=== PATIENT | female | born 1945 | race Caucasian/White ===

== ENCOUNTER → 2017-01-31 | Outpatient (CLI) | payer OTHER, MEDICARE ==
[~2017-01-31] MED LIST: AEROECLIPSE1 EACH; ASPIRIN81 M2 PO; BETAPACE AF120 M1; BETAPACE AF80 MG PO; CALTRATE PLUS1 EACH; CENTRUM COMPLE1 EACH; COZAAR 25 MG TA25 MG PO; FIBERCON625 M1 PO; GLUMETZA500 PO; MUCINEX600 MG PO; NORCO 5-325 TA1 EACH PO; PRILOSEC 20 MG20 MG PO; SIMVASTATIN20 MG PO; SYNTHROID75 MCG PO; XARELTO10 M1; XOPENEX; XOPENEX HF1 UDINHALE
== END ==
LOC: RAD 15:41
DX: J44.9 Chronic obstructive pulmonary disease, unspecified (principal); R06.89 Other abnormalities of breathing

== ENCOUNTER → 2019-03-15 | Outpatient (CLI) | payer OTHER, MEDICARE | LOC: RAD 12:46 | DX: R06.02 Shortness of breath (principal); Z88.1 Allergy status to other antibiotic agents; Z88.8 Allergy status to other drugs, medicaments and biological substances; Z88.0 Allergy status to penicillin ==

== ENCOUNTER → 2019-11-01 | Outpatient (CLI) | payer OTHER, MEDICARE | LOC: SJCVCIMAG 13:46 | DX: I65.23 Occlusion and stenosis of bilateral carotid arteries (principal); I48.0 Paroxysmal atrial fibrillation; I10 Essential (primary) hypertension; E11.9 Type 2 diabetes mellitus without complications; J44.9 Chronic obstructive pulmonary disease, unspecified; E78.00 Pure hypercholesterolemia, unspecified; Z90.710 Acquired absence of both cervix and uterus; Z79.01 Long term (current) use of anticoagulants; Z79.84 Long term (current) use of oral hypoglycemic drugs; Z79.899 Other long term (current) drug therapy; Z87.891 Personal history of nicotine dependence ==

== ENCOUNTER → 2020-03-11 | Outpatient (CLI) | payer OTHER, MEDICARE | LOC: SJCVC 11:32 | DX: I44.0 Atrioventricular block, first degree (principal); I48.0 Paroxysmal atrial fibrillation; I65.23 Occlusion and stenosis of bilateral carotid arteries; E78.5 Hyperlipidemia, unspecified; I10 Essential (primary) hypertension; E11.9 Type 2 diabetes mellitus without complications; J44.9 Chronic obstructive pulmonary disease, unspecified; E78.00 Pure hypercholesterolemia, unspecified; Z79.899 Other long term (current) drug therapy; Z82.49 Family history of ischemic heart disease and other diseases of the circulatory system; Z79.01 Long term (current) use of anticoagulants; Z87.891 Personal history of nicotine dependence ==

== ENCOUNTER → 2020-07-30 | Outpatient (CLI) | payer OTHER, MEDICARE | LOC: RAD 10:46 | PROVIDERS: ATTEND Pediatrics | DX: R06.02 Shortness of breath (principal) ==

== ENCOUNTER → 2020-09-10 | Outpatient (CLI) | payer OTHER, MEDICARE | LOC: SJCVCIMAG 08:03 | PROVIDERS: ATTEND Internal Medicine | DX: I65.23 Occlusion and stenosis of bilateral carotid arteries (principal); I08.2 Rheumatic disorders of both aortic and tricuspid valves; I11.9 Hypertensive heart disease without heart failure; R00.0 Tachycardia, unspecified; I48.0 Paroxysmal atrial fibrillation; E78.5 Hyperlipidemia, unspecified; E11.9 Type 2 diabetes mellitus without complications; Z79.01 Long term (current) use of anticoagulants; Z79.899 Other long term (current) drug therapy; Z87.891 Personal history of nicotine dependence ==

== ENCOUNTER 2021-02-18 01:08 | Emergency (ER) | payer OTHER, MEDICARE ==
[~2021-02-18] VITALS: Ht 172.7 cm; Wt 73.0 kg
[2021-02-18 01:59] LABS: ABSOLUTE NEUTROPHILS 3.8 thou/uL (1.4-8.2); BASOPHILS 0.3 % (0.0-2.0); EOSINOPHILS 1.4 % (0.0-3.0); HEMATOCRIT 36.2 % (37.0-47.0); HEMOGLOBIN 11.8 gm/dL (12.0-15.0); LYMPHOCYTES 10.6 % (24.0-44.0); MCH 29.5 pg (26.0-34.0); MCHC 32.5 g/dL (28.0-37.0); MCV 90.5 fL (80.0-100.0); MONOCYTES 8.1 % (1.0-8.0); PLATELET COUNT 176 thou/uL (150-400); POLYS 79.6 % (36.0-66.0); RDW 15.3 % (10.5-14.5); WBC 4.8 thou/uL (4.0-11.0)
[2021-02-18 02:02] LABS: CALCIUM 9.6 mg/dL (8.5-10.1); CREATININE 0.9 mg/dL (0.6-1.0); POTASSIUM 3.9 mmol/L (3.5-5.1)
[2021-02-18 02:03] LABS: URINE BILIRUBIN NEGATIVE (Negative); URINE BLOOD TRACE (Negative); URINE CLARITY CLEAR; URINE COLOR YELLOW; URINE GLUCOSE-RANDOM* NEGATIVE (Negative); URINE KETONES NEGATIVE (Negative); URINE LEUKOCYTES-REFLEX NEGATIVE (Negative); URINE NITRITE-REFLEX NEGATIVE (Negative); URINE PROTEIN (DIPSTICK) NEGATIVE (Negative); URINE UROBILINOGEN 0.2 E.U./dl (0.2-1.0)
[2021-02-18 02:08] LABS: ALBUMIN 3.6 g/dL (3.4-5.0); TOTAL BILIRUBIN 0.9 mg/dL (0.2-1.0); TOTAL PROTEIN 7.2 g/dL (6.4-8.2)
[2021-02-18 02:37] VITALS: BP 135/55
== END 2021-02-18 02:38 | disposition home or self-care (01) ==
LOC: ER 01:08
PROVIDERS: Emergency Medicine
DX: R50.9 Fever, unspecified (principal); E11.9 Type 2 diabetes mellitus without complications; I48.91 Unspecified atrial fibrillation; I10 Essential (primary) hypertension; E03.9 Hypothyroidism, unspecified; J44.9 Chronic obstructive pulmonary disease, unspecified; Z88.1 Allergy status to other antibiotic agents; Z88.0 Allergy status to penicillin; Z79.899 Other long term (current) drug therapy; Z79.82 Long term (current) use of aspirin

== ENCOUNTER → 2021-04-08 | Outpatient (CLI) | payer OTHER, MEDICARE | LOC: SJCVC 10:32 | PROVIDERS: ATTEND Internal Medicine | DX: R94.31 Abnormal electrocardiogram [ECG] [EKG] (principal); I48.0 Paroxysmal atrial fibrillation; E78.5 Hyperlipidemia, unspecified; I65.23 Occlusion and stenosis of bilateral carotid arteries; I10 Essential (primary) hypertension; E11.9 Type 2 diabetes mellitus without complications; J44.9 Chronic obstructive pulmonary disease, unspecified; E78.00 Pure hypercholesterolemia, unspecified; Z90.710 Acquired absence of both cervix and uterus; Z88.0 Allergy status to penicillin; Z88.8 Allergy status to other drugs, medicaments and biological substances; Z79.01 Long term (current) use of anticoagulants; Z79.82 Long term (current) use of aspirin; Z79.84 Long term (current) use of oral hypoglycemic drugs; Z79.899 Other long term (current) drug therapy; Z87.891 Personal history of nicotine dependence; Z82.49 Family history of ischemic heart disease and other diseases of the circulatory system ==

== ENCOUNTER → 2021-10-08 | Outpatient (CLI) | payer OTHER, MEDICARE | LOC: SJCVC 13:06 | PROVIDERS: ATTEND Internal Medicine | DX: I44.0 Atrioventricular block, first degree (principal); I48.0 Paroxysmal atrial fibrillation; E78.5 Hyperlipidemia, unspecified; I10 Essential (primary) hypertension; I65.23 Occlusion and stenosis of bilateral carotid arteries; E11.9 Type 2 diabetes mellitus without complications; Z79.01 Long term (current) use of anticoagulants; J45.909 Unspecified asthma, uncomplicated; I48.92 Unspecified atrial flutter; E78.00 Pure hypercholesterolemia, unspecified; Z98.890 Other specified postprocedural states; Z88.1 Allergy status to other antibiotic agents; Z88.0 Allergy status to penicillin; Z88.8 Allergy status to other drugs, medicaments and biological substances; Z87.891 Personal history of nicotine dependence; Z79.82 Long term (current) use of aspirin; Z79.899 Other long term (current) drug therapy ==